=== PATIENT | female | born 1960 | race Caucasian/White ===

== ENCOUNTER 2017-06-14 16:02 | Observation (INO) | payer OTHER ==
[2017-06-14] MEDS ORDERED: TYLENOL 325 MG PO PRN (16:46)
[2017-06-14] MEDS ORDERED: Colace 100 MG PO PRN (16:47)
[2017-06-14] MEDS ORDERED: Sodium Chloride 0.9% 500 ML 500 ML IV SCH (17:00)
[2017-06-14 17:44] LABS: BASOPHIL % 0.3 % (0.0-0.4); Basophil (Absolute #) 0.02 (0-0.4); Eosinophil % 3.7 % (0.00-5.0); Eosinophil (Absolute #) 0.29 (0-0.5); Granulocytes % 48.8 % (36.0-66.0); Hematocrit 40.4 % (35-47); Hemoglobin 13.2 gm/dl (12.0-16.0); Lymphocyte (Absolute #) 3.07 (1.0-4.6); Lymphocytes % 39.4 % (24.0-44.0); Mean Cell Volume 86.5 fl (78-100); Mean Corpuscular Hemoglobin 28.3 pg (26-32); Mean Corpuscular Hgb Concent. 32.7 g/dl (32-36); Mean Platelet Volume 10.2 fl (6-9.5); Monocyte (Absolute #) 0.61 (0.0-1.3); Monocytes % 7.8 % (0.0-12.0); Platelet Count 341 K/mm3 (150-450); Red Blood Count 4.67 M/mm3 (4.1-5.4); Red Cell Distribution Width 20.9 % (11.5-14.0); White Blood Count 7.8 K/mm3 (4.0-10.5)
[2017-06-14] MEDS: Zofran 4 MG/2 ML VIAL IV PRN ×2 (17:44→21:44)
[2017-06-14 17:58] LABS: ALBUMIN 4.3 g/dL (3.5-5.0); ALKALINE PHOSPHATASE 170 U/L (38-126); ANION GAP 14.4 MEQ/L (5-15); BLOOD UREA NITROGEN 13 mg/dL (7-17); CHLORIDE 106 mmol/L (98-107); Calcium 9.5 mg/dL (8.4-10.2); Carbon Dioxide 23 mmol/L (22-30); Creatinine 1 0.54 mg/dL (0.52-1.04); Glucose 91 mg/dL (74-106); SGOT/AST 46 U/L (14-36); SGPT/ALT 44 U/L (0-35); SODIUM 139 mmol/L (137-145)
[2017-06-14] MEDS: Dextrose 5% -0.45 NaCl 1000 ML 1,000 ML IV SCH (18:50)
[2017-06-14] MEDS ORDERED: Oxycontin 10 MG ER PO PRN (19:16)
[2017-06-14] MEDS ORDERED: Protonix 40MG Tablet ONE (21:37)
[2017-06-14] MEDS: LYRICA 100MG PO SCH (21:43)
[2017-06-14] MEDS: MAG-OX 400 PO SCH (21:43)
[2017-06-14] MEDS: Lexapro 10 MG PO SCH (21:43)
[2017-06-14] MEDS: BENTYL 20 MG PO SCH (21:44)
[2017-06-14] MEDS: Klonopin 0.5 MG PO SCH (21:44)
[2017-06-14] MEDS ORDERED: Protonix 20MG Tablet PO SCH (22:00)
[2017-06-15] MEDS: Dextrose 5% -0.45 NaCl 1000 ML 1,000 ML IV SCH ×2 (02:42→14:34)
[2017-06-15 04:37] LABS: Appearance CLOUDY (CLEAR); Bilirubin NEGATIVE (NEGATIVE); Blood NEGATIVE Ery/ul (0-5); Glucose NEGATIVE (NEGATIVE); Ketones SMALL (NEGATIVE); Leukocyte Esterase NEGATIVE (NEGATIVE); Nitrite NEGATIVE (NEGATIVE); Protein,Urine Dip NEGATIVE (Negative); Specific Gravity 1.025 (1.005-1.025); Urobilinogen NORMAL mg/dL (0-1)
[2017-06-15] MEDS ORDERED: MEDICATION INTERVENTION MC SCH ×2 (07:45)
[2017-06-15] MEDS: Zofran 4 MG/2 ML VIAL IV PRN (08:13)
[2017-06-15] MEDS: Oxycontin 10 MG ER PO PRN ×2 (08:13→22:18)
[2017-06-15] MEDS ORDERED: FOLIC ACID PO SCH (10:00)
[2017-06-15] MEDS ORDERED: VITAMIN D3 PO SCH (10:00)
[2017-06-15] MEDS ORDERED: BIOTIN PO SCH (10:00)
[2017-06-15] MEDS ORDERED: CALCIUM CARBONATE PO SCH (10:00)
[2017-06-15] MEDS ORDERED: NON-FORMULARY ITEM (Estrogens, Conjugated [Premarin] 1.25 MG) PO SCH (10:00)
[2017-06-15] MEDS ORDERED: [UNRECOGNIZED DRUG - OTHER] PO SCH (10:00)
[2017-06-15] MEDS ORDERED: VIT D TB PO SCH (10:00)
[2017-06-15] MEDS ORDERED: NON-FORMULARY ITEM (Armodafinil [Nuvigil] 250 MG) PO SCH (10:00)
[2017-06-15] MEDS ORDERED: MULTIVIT MIN PO SCH (10:00)
[2017-06-15] MEDS ORDERED: [UNRECOGNIZED DRUG - OTHER] PO SCH (10:00)
[2017-06-15] MEDS ORDERED: NON-FORMULARY ITEM (Biotin [Biotin] 10,000 MCG) PO SCH (10:00)
[2017-06-15] MEDS: SYNTHROID 50 MCG PO SCH (11:18)
[2017-06-15] MEDS: Calcium 500MG W/Vit D Tablet PO SCH ×2 (11:18→22:18)
[2017-06-15] MEDS: LYRICA 100MG PO SCH ×3 (11:18→22:19)
[2017-06-15] MEDS: THERAGRAN MULTIVITAMIN PO SCH ×2 (11:18→22:18)
[2017-06-15] MEDS: BENTYL 20 MG PO SCH ×4 (11:18→22:18)
[2017-06-15] MEDS: PREMARIN PO SCH (11:19)
[2017-06-15] MEDS: Imitrex 6 MG/0.5 ML SQ PRN (14:28)
[2017-06-15] MEDS ORDERED: Protonix 40MG Tablet PO SCH (22:00)
[2017-06-15] MEDS: Lexapro 10 MG PO SCH (22:18)
[2017-06-15] MEDS: Klonopin 0.5 MG PO SCH (22:19)
[2017-06-15] MEDS: MAG-OX 400 PO SCH (22:20)
[2017-06-16] MEDS: Dextrose 5% -0.45 NaCl 1000 ML 1,000 ML IV SCH ×2 (00:28→09:33)
[2017-06-16] MEDS: Zofran 4 MG/2 ML VIAL IV PRN ×3 (00:34→16:32)
--- NOTE | 2017-06-16 08:45 | PCM.NOTE ---
Date and Time: 06/16/17 0839 Subjective Assessment: Patient with documented better oral intake yesterday. She reports still no stool. She reports continued lower abdominal pain in the midline below her umbilicus. She states she has a history of adhesions and has seen two different stereotype finisher and a surgeon in the past. She denies constipation at home but she is on chronic narcotics from her pain management doctor. She reports the beginning of a migraine headache this AM. - Review of Systems Constitutional: No Symptoms Eyes: No Symptoms Ears, Nose, & Throat: No Symptoms Respiratory: No Symptoms Cardiac: No Symptoms Abdominal/Gastrointestinal: Abdominal Pain, No Diarrhea Genitourinary Symptoms: No Symptoms Musculoskeletal: No Symptoms Skin: No Symptoms Neurological: Headache Objective Exam General Appearance: no apparent distress, obese Neurologic Exam: alert, cooperative, normal mood/affect Skin Exam: normal color, warm, dry, No rash Respiratory Exam: normal breath sounds, lungs clear, No accessory muscle use, No prolonged expirations, No crackles/rales, No wheezing Cardiovascular Exam: regular rate/rhythm, normal heart sounds, No murmur, No friction rub, No gallop Gastrointestinal/Abdomen Exam: soft, normal bowel sounds, tenderness, other ( suprapubic tenderness), No distention, No mass, No guarding Extremity Exam: normal inspection, other (no c/c/e) OBJECTIVE DATA Vital Signs: Vital Signs - 24 hr Temp Pulse Resp BP Pulse Ox 06/16/17 07:37 98.4 F 77 18 111/66 90 L 06/16/17 04:00 97.9 F 76 18 123/74 93 L 06/15/17 23:49 98.2 F 82 18 131/60 92 L 06/15/17 19:58 97.8 F 75 75 H 109/58 92 L 06/15/17 16:10 98.4 F 72 18 121/70 96 06/15/17 12:37 98 F 79 20 102/56 97 Pain Assessment - Last Documented Pain Intensity 7 Pain Scale Used 0-10 Pain Scale Intake and Output: Intake & Output 06/14/17 06/15/17 06/16/17 06/17/17 06:59 06:59 06:59 06:59 Intake Total 240 4635 992 Output Total 200 3050 Balance 40 1585 992 Weight 65 kg Radiology Exams: Radiology Procedures Category Date Time Status ABDOMEN AND PELVIS W&WO CONTRA [CT] Routine Exams 06/16/17 08:39 Ordered Assessment/Plan (1) Dehydration Current Visit: Yes Status: Acute Assessment & Plan: Resolved with IV Fluids. Will recheck labs today. She has started to take more by mouth. Code(s): E86.0 - DEHYDRATION (2) Nausea Current Visit: Yes Status: Acute Assessment & Plan: Continue zofran as needed. Code(s): R11.0 - NAUSEA (3) Abdominal pain Current Visit: Yes Status: Acute Assessment & Plan: Plan to check CT of abd/pelvis today. If no acute findings may be related to irritable bowel syndrome or adhesions and she will need to follow up with her specialists as an outpatient. Code(s): R10.9 - UNSPECIFIED ABDOMINAL PAIN (4) Migraine Current Visit: Yes Status: Acute Assessment & Plan: She has her home sumatriptan ordered as needed. Code(s): G43.909 - MIGRAINE, UNSP, NOT INTRACTABLE, WITHOUT STATUS MIGRAINOSUS
[2017-06-16 09:19] LABS: BASOPHIL % 0.2 % (0.0-0.4); Basophil (Absolute #) 0.02 (0-0.4); Eosinophil % 4.2 % (0.00-5.0); Eosinophil (Absolute #) 0.36 (0-0.5); Granulocytes % 55.7 % (36.0-66.0); Hematocrit 36.7 % (35-47); Hemoglobin 11.6 gm/dl (12.0-16.0); Lymphocyte (Absolute #) 2.82 (1.0-4.6); Lymphocytes % 32.8 % (24.0-44.0); Mean Cell Volume 90.6 fl (78-100); Mean Corpuscular Hemoglobin 28.6 pg (26-32); Mean Corpuscular Hgb Concent. 31.6 g/dl (32-36); Mean Platelet Volume 9.8 fl (6-9.5); Monocyte (Absolute #) 0.61 (0.0-1.3); Monocytes % 7.1 % (0.0-12.0); Platelet Count 292 K/mm3 (150-450); Red Blood Count 4.05 M/mm3 (4.1-5.4); Red Cell Distribution Width 20.3 % (11.5-14.0); White Blood Count 8.6 K/mm3 (4.0-10.5)
[2017-06-16] MEDS: BENTYL 20 MG PO SCH ×3 (09:34→16:33)
[2017-06-16] MEDS: PREMARIN PO SCH (09:34)
[2017-06-16] MEDS: THERAGRAN MULTIVITAMIN PO SCH (09:35)
[2017-06-16] MEDS: LYRICA 100MG PO SCH ×2 (09:35→14:45)
[2017-06-16] MEDS: SYNTHROID 50 MCG PO SCH (09:35)
[2017-06-16] MEDS: Calcium 500MG W/Vit D Tablet PO SCH (09:35)
[2017-06-16] MEDS: Imitrex 6 MG/0.5 ML SQ PRN (09:51)
[2017-06-16 10:01] LABS: ALBUMIN 3.4 g/dL (3.5-5.0); ALKALINE PHOSPHATASE 130 U/L (38-126); ANION GAP 14.2 MEQ/L (5-15); BILIRUBIN,TOTAL < 0.10 mg/dL (0.2-1.3); BLOOD UREA NITROGEN 6 mg/dL (7-17); CHLORIDE 108 mmol/L (98-107); Calcium 8.6 mg/dL (8.4-10.2); Carbon Dioxide 22 mmol/L (22-30); Creatinine 1 0.57 mg/dL (0.52-1.04); Glucose 120 mg/dL (74-106); Potassium 3.5 mmol/L (3.5-5.1); SGOT/AST 66 U/L (14-36); SGPT/ALT 51 U/L (0-35); SODIUM 141 mmol/L (137-145); Total Protein 6.8 g/dL (6.3-8.2)
--- NOTE | 2017-06-16 12:14 | XRAY ---
Indication: Nausea and vomiting. Comparison: None 2 views of the abdomen nonacute and nonobstructed. Solid organs unremarkable. Osseous structures intact with mild levoscoliosis and L1-L3 fusion surgery with intact spinal hardware. Single PA chest again demonstrates normal heart and lungs with a few incidental calcified granulomas. Bony thorax intact with minimal degenerative changes. Impression: Nonacute nonobstructed abdomen. Stable nonacute one view chest.
[2017-06-16] MEDS: Oxycontin 10 MG ER PO PRN (12:34)
[2017-06-16 16:33] VITALS: BP 122/64; PULSE 95; O2SAT 95
[2017-06-16 16:51] LABS: 027 TOX PROD PRESUMPTIVE NEGATIVE (NEGATIVE); TOXIGENIC C. DIFF ORG NEGATIVE (NEGATIVE)
--- NOTE | 2017-06-16 17:01 | PCM.DCORD ---
- Discharge Discharge Date: 06/16/17 Disposition: Home, Self-Care Condition: Fair Prescriptions: New Ondansetron ODT 4 MG [Zofran Odt 4 mg] 4 mg PO Q8H PRN #20 tab.rapdis PRN Reason: Nausea Continue RX: Levothyroxine Sodium 50 Mcg [Synthroid 50 Mcg] 50 mcg PO DAILY RX: PANTOPRAZOLE 40 mg Tablet [Protonix 40MG Tablet] 40 mg PO QPM RX: Dicyclomine HCl 20 mg [Bentyl 20 mg] 20 mg PO QID RX: Magnesium Oxide 400 mg [Mag-Ox 400] 400 mg PO HS RX: Escitalopram Oxalate [Lexapro] 20 mg PO HS RX: Estrogens, Conjugated [Premarin] 1.25 mg PO DAILY RX: Pregabalin [Lyrica 100Mg] 200 mg PO TID RX: Clonazepam 0.5 mg [Klonopin 0.5 MG] 0.5 mg PO HS RX: Armodafinil [Nuvigil] 250 mg PO DAILY RX: Sumatriptan Succinate [Imitrex] 4 mg SQ DAILY PRN PRN Reason: Headache RX: Oxycodone HCl [Oxycontin] 10 mg PO BID PRN PRN Reason: Pain RX: Multivit-Min/Folic Acid/Biotin [Hair, Skin and Nails Caplet] 1 each PO BID RX: Biotin 10,000 mcg PO TID RX: Calcium Carbonate/Vitamin D3 [Calcium 600 with Vit D Chew Tb] 1 cap PO BID Follow up with: DONAVAN PERERA [Primary Care Provider] - 1 Week
== END 2017-06-16 18:45 | disposition home or self-care (01) ==
LOC: MED SURG 16:02
PROVIDERS: ADMIT Internal Medicine; ATTEND Internal Medicine
DX: E03.9 Hypothyroidism, unspecified (principal); G43.909 Migraine, unspecified, not intractable, without status migrainosus; R10.9 Unspecified abdominal pain; K21.9 Gastro-esophageal reflux disease without esophagitis; F17.200 Nicotine dependence, unspecified, uncomplicated
CPT/HCPCS: 36415; 74022; 80053; 81002; 85025; 87045; 87046; 87335; 87493; G0378; J2405; J3030; A9270-GY